=== PATIENT | female | born 1965 | race Hispanic/Latino ===

== ENCOUNTER 2024-08-27 17:08 | Emergency (ER) | payer OTHER ==
[~2024-08-27] VITALS: Ht 165.1 cm; Wt 74.8 kg
--- NOTE | 2024-08-27 17:16 | ERN ---
ED Note History of Present Illness Stated Complaint: RT EYE SWELLING, BUG BITE Chief Complaint: Eye Problems Time Seen by MD: 17:09 Dictation: PATIENT IS A 59-YEAR-OLD FEMALE WITH RIGHT LOWER EYELID SWELLING WITH PROXIMAL ENVENOMATION SITE ONSET FOUR DAYS PRIOR TO ARRIVAL. SHE STATES SHE MIGHT HAVE BEEN STUNG HOWEVER SHE IS NOT SURE. STATES SHE HAS HAD NO FEVER NO CHILLS NO VISION CHANGES. STATES SHE HAS BEEN COULD THEY CAN BENADRYL WITHOUT ANY IMPROVEMENT. STATES SHE CALLED HER PRIMARY CARE DOCTOR TODAY WHO TOLD HIM THAT THEY WERE TOO BUSY TO SEE YOUR TODAY. Allergies: Coded Allergies: No Known Allergies (Unverified Allergy, Unknown, 08/27/24) Past Medical History Past Medical History: High Cholesterol, Hypertension Surgical History: None History: Not Applicable RN Note Reviewed/Agreed w/PFSH: Yes Review of System Dictation CONSTITUTIONAL: NEGATIVE EXCEPT FOR HPI HEAD/FACE: NEGATIVE EXCEPT FOR HPI EENT: NEGATIVE EXCEPT FOR HPI RIGHT LOWER EYELID SWELLING POSSIBLE INSECT BITE RESPIRATORY: NEGATIVE EXCEPT FOR HPI GASTROINTESTINAL/ABDOMINAL: NEGATIVE EXCEPT FOR HPI GENITOURINARY: NEGATIVE EXCEPT FOR HPI MUSCULOSKELETAL: NEGATIVE EXCEPT FOR HPI INTEGUMENTARY: NEGATIVE EXCEPT FOR HPI NEUROLOGICAL/PSYCH: NEGATIVE EXCEPT FOR HPI HEMATOLOGIC/LYMPHATIC: NEGATIVE EXCEPT FOR HPI ALL SYSTEMS NEGATIVE, EXCEPT NOTED ABOVE. 13 POINT REVIEW OF SYSTEMS ASSESSED AND ALL NEGATIVE EXCEPT FOR ABOVE. Initial Vital Sign VS Vital Signs Date Time Temp Pulse Resp B/P (MAP) Pulse Ox O2 Delivery O2 Flow Rate FiO2 08/27/24 17:09 98.2 65 16 173/84 96 Room Air 0 Physical Exam Dictation VITAL SIGNS REVIEWED GENERAL APPEARANCE: ALERT, ORIENTED X 3, NO ACUTE DISTRESS, WELL DEVELOPED, NOURISHED. HEAD AND FACE: NON-TRAUMATIC. EYES: PERRL, RIGHT LOWER EYELID MILD SWELLING WITH ERYTHEMA. POSSIBLE TARGET LESION. EOMS INTACT CONJUNCTIVA NORMAL EARS: PINNAS INTACT AND NO SIGNS OF TRAUMA OR ERYTHEMA EAR CANALS CLEAR AND NO DISCHARGE TM NO ERYTHEMA NOSE: NO DISCHARGE, NO BLEEDING. OROPHARYNX: MOUTH NORMAL, TONGUE PINK, PHARYNX CLEAR,NO ERYTHEMA, TONSILS NO EXUDATES, NO ABSCESSES NOTED, MUCOUS MEMBRANE MOIST NECK: SUPPLE, NON-TENDER, NO THYROMEGALY, NO MASSES, NO JVD, NO BRUITS BREAST:DEFERRED CHEST:NO TENDERNESS, NO CREPITUS, NO PARADOXICAL MOVEMENT, NO RETRACTIONS LUNGS:CLEAR, WELL-VENTILATED, SYMMETRIC, NO RALES, NO WHEEZING, NO RHONCHI, NO STRIDOR, GOOD BREATH SOUNDS BILATERALLY HEART: REGULAR RATE, REGULAR RHYTHM, NO MURMUR, NO GALLOPS VASCULAR: NO PERIPHERAL EDEMA, ABDOMEN: SOFT, POSITIVE BOWEL SOUNDS, NONDISTENDED, NO GUARDING, NONTENDER, NO REBOUND, NO MASSES NO HEPATOMEGALY, NO SPLENOMEGALY, NO RICHMOND'S SIGN, NO HERNIAS. RECTAL: DEFERRED GENITAL: DEFERRED NEUROLOGICAL: NORMAL SPEECH, MOTOR FUNCTION INTACT, SENSORY FUNCTION INTACT MUSCULOSKELETAL: NECK NONTENDER, FULL RANGE OF MOTION, BACK NONTENDER, FULL RANGE OF MOTION, EXTREMITIES: NONTENDER, FULL RANGE OF MOTION SKIN: COLOR PINK, DRY, NO TURGOR, NO RASH, NO LACERATIONS, NO ABRASIONS, NO CONTUSIONS. LYMPHATIC: DEFERRED Results (Laboratory/Radiology) Laboratory/Radiology Laboratory Tests Test 08/27/24 17:24 White Blood Count 5.7 K/uL (4.8-10.8) Red Blood Count 4.82 MIL/uL (4.00-5.50) Hemoglobin 14.4 g/dL (12.0-16.0) Hematocrit 44.3 % (36-48) Mean Corpuscular Volume 91.9 fL (79-99) Mean Corpuscular Hemoglobin 29.9 pg (27.0-33.0) Mean Corpuscular Hemoglobin Concent 32.5 g/dL (32.0-36.0) Red Cell Distribution Width 13.2 % (11.0-15.5) Platelet Count 225 K/uL (130-400) Mean Platelet Volume 10.9 fL (7.5-10.5) H Immature Granulocyte % (Auto) 0.4 % (0-1) Neutrophils (%) (Auto) 61.0 % (40.0-77.0) Lymphocytes (%) (Auto) 29.7 % (21.0-51.0) Monocytes (%) (Auto) 6.4 % (3.0-13.0) Eosinophils (%) (Auto) 2.1 % (0.0-8.0) Basophils (%) (Auto) 0.4 % (0.0-5.0) Neutrophils # (Auto) 3.5 K/uL (1.8-7.7) Lymphocytes # (Auto) 1.7 K/uL (1.0-4.8) Monocytes # (Auto) 0.4 K/uL (0.1-1.0) Eosinophils # (Auto) 0.12 K/uL (0.00-0.70) Basophils # (Auto) 0.02 K/uL (0.00-0.20) Absolute Immature Granulocyte (auto 0.02 K/uL (0-1) Nucleated Red Blood Cells 0.0 % (0.0-0.19) Sodium Level 143 mmol/L (136-145) Potassium Level 4.0 mmol/L (3.5-5.1) Chloride Level 104 mmol/L (101-111) Carbon Dioxide Level 31 mmol/L (21-32) Blood Urea Nitrogen 17 mg/dL (7-18) Creatinine 0.6 mg/dL (0.5-1.0) Glomerular Filtration Rate Calc 103 mL/min (>90) Random Glucose 109 mg/dL (70-105) H Lactic Acid Level 1.2 mmol/L (0.8-2.5) Total Calcium 9.5 mg/dL (8.5-10.1) Labs Reviewed?: Yes ED Course ED Course Orders Procedure Category Date Status Time Blood Cult JUSTINA 08/27/24 In Process 17:12 Lactic Acid LAB 08/27/24 Complete 17:12 Cbc With Differential LAB 08/27/24 Complete 17:12 Basic Metabolic Panel LAB 08/27/24 Complete 17:12 Clindamycin 150mg Cap PHA 08/27/24 In Process (Cleocin 150mg Cap 17:30 Current Medications Medications (Trade) Dose Ordered Sig/Gabino Route PRN Reason Start Time Stop Time Status Last Admin Dose Admin Clindamycin HCl (Cleocin 150mg Cap) 600 mg ONCE PO 08/27/24 17:30 08/27/24 21:30 08/27/24 17:35 Vital Signs Date Time Temp Pulse Resp B/P (MAP) Pulse Ox O2 Delivery O2 Flow Rate FiO2 08/27/24 17:09 98.2 65 16 173/84 96 Room Air 0 1815/LABS ARE UNREMARKABLE, LACTIC ACID DOSES. PATIENT WILL BE DISCHARGED HOME WITH A INSECT BITE TO FACE GIVEN CLINDAMYCIN TOLD SEE HER DOCTOR Medical Decision Making MDM MEDICAL DECISION-MAKING BASED ON BASIC LABS TO INCLUDE BLOOD CULTURES FOR POSSIBLE INFECTED INSECT BITE. LABS UNREMARKABLE NO LACTIC ACIDOSIS. PATIENT IS SENT HOME WITH CLINDAMYCIN TOLD SEE HER DOCTOR DX & DISP Disposition: Discharge Departure Impression: Primary Impression: Infected insect bite of face Condition: Stable Scripts Clindamycin HCl (Clindamycin HCl) 300 Mg Capsule 1 CAP PO QID for 10 Days, #40 CAP 0 Refills Prov: KEZIA RODRIGES NP 08/27/24 Additional Instructions: FOLLOW-UP WITH PRIMARY CARE PROVIDER IN 1 TO 2 DAYS. TAKE MEDICATIONS DIRECTED HERE IN THE EMERGENCY ROOM. OKAY TO CONTINUE HOME MEDICATIONS UNLESS OTHERWISE DISCUSSED DURING YOUR VISIT IN THE EMERGENCY ROOM TODAY. RETURN TO YOUR NEAREST EMERGENCY ROOM IF SYMPTOMS WORSEN OR IF THERE IS NO IMPROVEMENT. CALL 911 IF YOU NEED IMMEDIATE ASSISTANCE. TAKE TYLENOL OR MOTRIN [id number] TER NEEDED AND IF NO CONTRAINDICATIONS ARE PRESENT. INCREASE ORAL HYDRATION. A WOUND CULTURE OR URINE CULTURE WAS ORDERED HERE IN THE EMERGENCY ROOM DEPARTMENT PLEASE FOLLOW-UP WITH PRIMARY CARE PROVIDER AND ADVISE THEM TO GET REPEAT PORTS FROM OUR FACILITY. IF YOU HAD ANY NANCY WRAP/SPLINTS THAT WERE APPLIED HERE, PLEASE DO NOT REMOVE THEM UNTIL YOU SEE YOUR PRIMARY CARE OR SP ECIALTY. TAKE ANTIBIOTICS DIRECTED UNTIL GONE. FOLLOW UP WITH YOUR PRIMARY CARE DOCTOR IN THE NEXT 2-3 DAYS NEEDED. Referrals: SELF,REFERRAL (PCP) Time of Disposition: 18:19 I have reviewed the case, and I agree with, Diagnosis and Plan KEZIA RODRIGES NP Aug 27, 2024 17:16
[2024-08-27 17:33] LABS: BASOPHILS # (AUTO) 0.02 K/uL (0.00-0.20); BASOPHILS % (AUTO) 0.4 % (0.0-5.0); EOSINOPHILS # (AUTO) 0.12 K/uL (0.00-0.70); EOSINOPHILS % (AUTO) 2.1 % (0.0-8.0); HEMATOCRIT 44.3 % (36-48); IMMATURE GRANULOCYTE ABSOLUTE 0.02 K/uL (0-1); LYMPHOCYTES # (AUTO) 1.7 K/uL (1.0-4.8); LYMPHOCYTES % (AUTO) 29.7 % (21.0-51.0); MEAN CORPUSCULAR HEMOGLOBIN 29.9 pg (27.0-33.0); MEAN CORPUSCULAR HGB CONC 32.5 g/dL (32.0-36.0); MEAN CORPUSCULAR VOLUME 91.9 fL (79-99); MONOCYTES # (AUTO) 0.4 K/uL (0.1-1.0); MONOCYTES % (AUTO) 6.4 % (3.0-13.0); NEUTROPHILS # (AUTO) 3.5 K/uL (1.8-7.7); PLATELET COUNT (AUTO) 225 K/uL (130-400); RED BLOOD CELL COUNT(AUTO) 4.82 MIL/uL (4.00-5.50); RED CELL DISTRIBUTION WIDTH 13.2 % (11.0-15.5); WHITE BLOOD COUNT (AUTO) 5.7 K/uL (4.8-10.8)
[2024-08-27] MEDS: CLINDAMYCIN 150 MG CAP PO SCH (17:35)
[2024-08-27 17:49] LABS: CREATININE 0.6 mg/dL (0.5-1.0)
[2024-08-27] MEDS ORDERED: CLIN-141 PO (18:20)
[2024-08-27 18:40] VITALS: BP 140/80; PULSE 52; RESP 18; TEMP 97.6; O2SAT 96
== END 2024-08-27 18:41 | disposition home or self-care (01) ==
LOC: EDH 17:08
DX: S00.86XA Insect bite (nonvenomous) of other part of head, initial encounter (principal); L08.9 Local infection of the skin and subcutaneous tissue, unspecified; E78.00 Pure hypercholesterolemia, unspecified; I10 Essential (primary) hypertension; W57.XXXA Bitten or stung by nonvenomous insect and other nonvenomous arthropods, initial encounter; Y93.89 Activity, other specified; Y92.89 Other specified places as the place of occurrence of the external cause; Y99.8 Other external cause status
CPT/HCPCS: 36415; 80048; 83605; 85025; 87040; 99283